=== PATIENT | female | born 1990 | race Caucasian/White ===

== ENCOUNTER 2017-11-25 12:25 | Emergency (ER) | payer SELFPAY ==
[~2017-11-25] VITALS: Ht 167.6 cm; Wt 90.0 kg
[2017-11-25 12:38] VITALS: BP 136/100
== END 2017-11-25 12:58 | disposition home or self-care (01) ==
LOC: ER 12:26
DX: F41.9 Anxiety disorder, unspecified (principal); Z00.8 Encounter for other general examination; Z87.891 Personal history of nicotine dependence
CPT/HCPCS: 82948; 99282; 99283